=== PATIENT | male | born 1955 | race Caucasian/White ===

== ENCOUNTER 2016-09-16 11:13 | Emergency (ER) | payer BC ==
--- NOTE | 2016-09-16 11:15 | EDM.PDOC ---
ED HPI GENERAL MEDICAL PROBLEM - General Chief Complaint: ENT Problem Stated Complaint: [id number] SINUS TOOTH PAIN Time Seen by Provider: 09/16/16 11:20 Source of Information: Reports: Patient, RN, RN Notes Reviewed History Limitations: Reports: No Limitations - History of Present Illness INITIAL COMMENTS - FREE TEXT/NARRATIVE: Patient arrives by POV with complaint of right ear and right facial pain. He took Tylenol last night and again this morning with no relief. The right ear feels plugged and has decreased hearing. Had a recent dentist appointment and he did not have any dental issues, so he does not believe it is dental related. Right Ear Pain Score (Numeric/FACES): 9 - Related Data Allergies Allergy/AdvReac Type Severity Reaction Status Date / Time Penicillins Allergy Rash Verified 09/16/16 11:20 Home Meds: Home Meds Valsartan/Hydrochlorothiazide [Valsartan-Hctz 160-25 mg Tab] 1 tab PO DAILY 02/22 [History] atorvaSTATin [Lipitor] 20 mg PO DAILY 10/22/15 [History] Past Medical History HEENT History: Reports: Impaired Vision Other HEENT History: wears glasses Cardiovascular History: Reports: High Cholesterol, Hypertension Respiratory History: Reports: None Gastrointestinal History: Reports: None Genitourinary History: Reports: None Musculoskeletal History: Reports: None Neurological History: Reports: None Psychiatric History: Reports: None Endocrine/Metabolic History: Reports: Obesity/BMI 30+ Hematologic History: Reports: None Immunologic History: Reports: None Oncologic (Cancer) History: Reports: None Dermatologic History: Reports: None - Infectious Disease History Infectious Disease History: Reports: Chicken Pox, Measles - Past Surgical History Musculoskeletal Surgical History: Reports: Arthroscopic Knee Social & Family History - Family History Family Medical History: Noncontributory - Tobacco Use Smoking Status *Q: Never Smoker Second Hand Smoke Exposure: No - Recreational Drug Use Recreational Drug Use: No - Living Situation & Occupation Living situation: Reports: , with Spouse ED ROS ENT - Review of Systems Review Of Systems: ROS reveals no pertinent complaints other than HPI. ED EXAM, ENT - Physical Exam Exam: See Below Exam Limited By: No Limitations General Appearance: Alert, WD/WN, No Apparent Distress Eye Exam: Bilateral Eye: Normal Inspection Ears: TM Dullness (right TM retracted with dull walls air-fluid level. ), Other ( Left TM normal. ) Nose: Other (inflamed, boggy nasal mucosa right greater than left, no purulence. ) Mouth/Throat: Normal Inspection, Normal Gums, Normal Lips, Normal Oropharynx, Normal Teeth Head: Atraumatic, Other (Right maxillary face tenderness with swelling and palpable cystic structure. No erythema. No drainage. ) Neck: Normal Inspection, Supple, Non-Tender, Full Range of Motion. No: Lymphadenopathy (L), Lymphadenopathy (R) Respiratory/Chest: No Respiratory Distress Cardiovascular: Regular Rate, Rhythm Neurological: Alert, Oriented, CN II-XII Intact, Normal Cognition, Normal Gait, No Motor/Sensory Deficits Psychiatric: Normal Affect, Normal Mood Skin: Warm, Dry, Intact, Normal Color, No Rash Course - Vital Signs Last Recorded V/S: Last Vital Signs Temp 35.7 C 09/16/16 11:18 Pulse 88 09/16/16 11:18 Resp 20 09/16/16 11:18 BP 176/92 H 09/16/16 11:18 Pulse Ox 100 09/16/16 11:18 Departure - Departure Time of Disposition: 11:29 Disposition: Home, Self-Care 01 Condition: good Clinical Impression: Sebaceous cyst Allergic rhinosinusitis Qualifiers: Chronicity: acute Allergic rhinitis trigger: unspecified Allergic rhinitis seasonality: unspecified seasonality Qualified Code(s): J30.9 - Allergic rhinitis, unspecified Eustachian tube dysfunction Qualifiers: Laterality: right Qualified Code(s): H69.81 - Other specified disorders of Eustachian tube, right ear - Discharge Information Instructions: Sebaceous Cyst Removal, Care After, Barotitis Media Forms: ED Department Discharge Additional Instructions: RX: Clindamycin 300 mg. Use over the counter decongestant. Gently blow your nose frequently until your right ear pops. Moist hot pack to right face. Follow up in clinic this week for recheck.
[2016-09-16 11:19] VITALS: BP 176/92
== END 2016-09-16 11:40 | disposition home or self-care (01) ==
LOC: DL.ED 11:13
DX: H69.81 Other specified disorders of Eustachian tube, right ear (principal); J30.9 Allergic rhinitis, unspecified; L72.3 Sebaceous cyst; Z88.0 Allergy status to penicillin; Z79.899 Other long term (current) drug therapy; H54.7 Unspecified visual loss; E78.00 Pure hypercholesterolemia, unspecified; I10 Essential (primary) hypertension; E66.9 Obesity, unspecified; Z98.890 Other specified postprocedural states; Z68.29 Body mass index [BMI] 29.0-29.9, adult
CPT/HCPCS: 99283

== ENCOUNTER 2016-09-17 08:44 | Emergency (ER) | payer BC ==
--- NOTE | 2016-09-17 08:49 | EDM.PDOC ---
ED HPI GENERAL MEDICAL PROBLEM - General Chief Complaint: ENT Problem Stated Complaint: [id number] SINUS EYE SWELLING CANT HEAR Time Seen by Provider: 09/17/16 08:48 Source of Information: Reports: Patient, Old Records, RN, RN Notes Reviewed History Limitations: Reports: No Limitations - History of Present Illness INITIAL COMMENTS - FREE TEXT/NARRATIVE: Seen here yesterday with Rt ear plugged/muffled, and facial swelling with a rubbery firm lump overlying the Rt maxillary face. Quality: Reports: Ache Severity: Severe Improves with: Reports: None Worsens with: Reports: None Associated Symptoms: Reports: No Other Symptoms Right Face Pain Score (Numeric/FACES): 9 - Related Data Allergies Allergy/AdvReac Type Severity Reaction Status Date / Time Penicillins Allergy Rash Verified 09/17/16 08:50 Home Meds: Home Meds Valsartan/Hydrochlorothiazide [Valsartan-Hctz 160-25 mg Tab] 1 tab PO DAILY 02/22 [History] atorvaSTATin [Lipitor] 20 mg PO DAILY 10/22/15 [History] Past Medical History HEENT History: Reports: Impaired Vision Other HEENT History: wears glasses Cardiovascular History: Reports: High Cholesterol, Hypertension Respiratory History: Reports: None Gastrointestinal History: Reports: None Genitourinary History: Reports: None Musculoskeletal History: Reports: None Neurological History: Reports: None Psychiatric History: Reports: None Endocrine/Metabolic History: Reports: Obesity/BMI 30+ Hematologic History: Reports: None Immunologic History: Reports: None Oncologic (Cancer) History: Reports: None Dermatologic History: Reports: None - Infectious Disease History Infectious Disease History: Reports: Chicken Pox, Measles - Past Surgical History Musculoskeletal Surgical History: Reports: Arthroscopic Knee Social & Family History - Family History Family Medical History: Noncontributory - Tobacco Use Smoking Status *Q: Never Smoker Second Hand Smoke Exposure: No - Recreational Drug Use Recreational Drug Use: No - Living Situation & Occupation Living situation: Reports: , with Spouse ED ROS ENT - Review of Systems Review Of Systems: ROS reveals no pertinent complaints other than HPI. ED EXAM, ENT - Physical Exam Exam: See Below Exam Limited By: No Limitations General Appearance: Alert, WD/WN, No Apparent Distress Eye Exam: Bilateral Eye: Normal Inspection Ears: Normal External Exam, Normal Canal, Hearing Grossly Normal, Normal TMs Nose: Other (Significant increase in right maxillary facial swelling compared to yesterday's exam. Increased warmth, tenderness and erythema. Bulging tender swelling at right pre-molar gingiva with small amount of purulent drainage. ) Mouth/Throat: Normal Inspection, Normal Gums, Normal Lips, Normal Oropharynx, Normal Teeth Head: Atraumatic, Normocephalic Neck: Normal Inspection, Supple, Non-Tender, Full Range of Motion Cardiovascular: Normal Peripheral Pulses, Regular Rate, Rhythm, No Edema, No Gallop, No JVD, No Murmur, No Rub GI/Abdominal: Normal Bowel Sounds, Soft, Non-Tender, No Organomegaly, No Distention, No Abnormal Bruit, No Mass Neurological: Alert, Oriented, CN II-XII Intact, Normal Cognition, Normal Gait, Normal Reflexes, No Motor/Sensory Deficits Psychiatric: Normal Affect, Normal Mood Lymphatic: No Adenopathy ED I&D PROCEDURES - I&D Site: Rt maxillary gingiva Skin prep: Saline Local anesthesia - Lidocaine (Xylocaine): 1% Plain Local Anesthetic Volume: 4cc Area Incised With: 11 Blade Drainage: Purulent, Bloody, Small Amount Probed to Break Up Loculations: Yes Packed With: None Sterile Dressing: None Complications: No Course - Vital Signs Last Recorded V/S: Last Vital Signs Temp 36.0 C 09/17/16 08:51 Pulse 88 09/17/16 08:51 Resp 18 09/17/16 08:51 BP 139/94 H 09/17/16 08:51 Pulse Ox 98 09/17/16 08:51 - Orders/Labs/Meds Labs: Laboratory Tests 09/17/16 09/17/16 09/17/16 Range/Units 08:58 08:58 08:58 WBC 17.7 H (5.0-10.0) 10^3/uL RBC 5.22 (4.6-6.2) 10^6/uL Hgb 17.0 (14.0-18.0) g/dL Hct 48.5 (40.0-54.0) % MCV 92.9 (80-100) fL MCH 32.6 (27.0-34.0) pg MCHC 35.1 H (33.0-35.0) g/dL Plt Count 266 (150-450) 10^3/uL Neut % (Auto) 78.1 H (42.2-75.2) % Lymph % (Auto) 9.7 L (20.5-50.1) % [place] % (Auto) 11.9 H (2-8) % Eos % (Auto) 0.1 L (1.0-3.0) % Baso % (Auto) 0.2 (0.0-1.0) % Sodium 139 (135-145) mmol/L Potassium 4.0 (3.6-5.0) mmol/L Chloride 103 (101-111) mmol/L Carbon Dioxide 23.0 (21.0-31.0) mmol/L Anion Gap 17.0 BUN 9 (7-18) mg/dL Creatinine 1.0 (0.6-1.3) mg/dL Est Cr Clr Drug Dosing TNP Estimated GFR (MDRD) > 60 Glucose 151 H (74-105) mg/dL Calcium 9.7 (8.4-10.2) mg/dl C-Reactive Protein 7.9 H (0.0-1.3) mg/dL Meds: Medications Discontinued Medications Generic Name Dose Route Start Last Admin Trade Name Freq PRN Reason Stop Dose Admin Dexamethasone 12 mg 09/17/16 09:48 09/17/16 10:08 Dexamethasone IVPUSH 09/17/16 09:49 12 mg ONETIME ONE Administration Iopamidol 100 ml 09/17/16 09:02 09/17/16 09:35 Isovue-300 (61%) IVPUSH 09/17/16 09:03 100 ml ONETIME ONE Administration Lidocaine HCl 30 ml 09/17/16 09:39 09/17/16 09:45 Xylocaine-Mpf 1% INJECT 09/17/16 09:40 30 ml ONETIME ONE Administration Lidocaine HCl 15 ml 09/17/16 09:39 09/17/16 09:45 Xylocaine 2% Viscous PO 09/17/16 09:40 15 ml ONETIME ONE Administration Vancomycin HCl 1,250 mg 09/17/16 09:50 09/17/16 10:09 Vancomycin IV 09/17/16 09:51 1,250 mg ONETIME ONE Administration - Radiology Interpretation Free Text/Narrative:: CT Maxillofacial/sinuses: Per rad report multiple periapical lucencies in the maxilla and mandible may represent periapical abscess. Significant periapical lucency in the right maxilla 9.3x6.9mm. This may represent significant periapical abscess or osteomyelitis. Soft tissue swelling lateral to the right maxilla. No drainable fluid collection in the soft tissues. Opacities in the maxillary sinuses right worse then left and right ethmoid sinuses may present sinusitis. CT Results Date: 09/17/16 Departure - Departure Time of Disposition: 11:15 Disposition: Home, Self-Care 01 Condition: fair Clinical Impression: Dental abscess, Cellulitis and abscess of face, Right maxillary sinusitis - Discharge Information Instructions: Dental Abscess, [id number], Cellulitis, Adult, [id number], Sinusitis, Adult, [id number] Forms: ED Department Discharge Additional Instructions: RX: Levaquin 500mg. RX: Elmer 5mg/325mg. Continue Clindamycin as prescribed. Frequent saltwater swish & spit until gum incision has healed (especially after eating or drinking). Follow up tomorrow with your dentist. Return to ER if worse at any time.
[2016-09-17] MEDS ORDERED: Iopamidol 612 MG/ML 75 ML Bottle IVPUSH ONE (08:53)
[2016-09-17] MEDS ORDERED: Iopamidol 612 MG/ML 100 ML Bottle IVPUSH ONE (09:02)
[2016-09-17 09:24] LABS: CHLORIDE,CL 103 mmol/L (101-111); SODIUM,NA 139 mmol/L (135-145)
[2016-09-17] MEDS ORDERED: Lidocaine 1% 30 ML SDV INJECT ONE (09:39)
[2016-09-17] MEDS ORDERED: Lidocaine 2% Viscous Solution 15 ML Cup PO ONE (09:39)
[2016-09-17] MEDS ORDERED: Dexamethasone 4 MG/ML SDV IVPUSH ONE (09:48)
[2016-09-17] MEDS ORDERED: Vancomycin 500 MG SDV IV ONE (09:50)
[2016-09-17 11:52] VITALS: BP 158/92
== END 2016-09-17 11:50 | disposition home or self-care (01) ==
LOC: DL.ED 08:44
DX: K04.7 Periapical abscess without sinus (principal); J32.0 Chronic maxillary sinusitis; L02.01 Cutaneous abscess of face; L03.211 Cellulitis of face; I10 Essential (primary) hypertension; Z68.29 Body mass index [BMI] 29.0-29.9, adult; H54.7 Unspecified visual loss; Z79.899 Other long term (current) drug therapy; E78.00 Pure hypercholesterolemia, unspecified; E66.9 Obesity, unspecified; Z88.0 Allergy status to penicillin
CPT/HCPCS: 36415; 70487; 80048; 85025; 86140; 96365; 96375; 99284; A9270; J1100; J3370; Q9967

== ENCOUNTER 2021-05-09 08:14 | Emergency (ER) | payer BC, MEDICARE ==
[2021-05-09] MEDS ORDERED: Lidocaine 2% Viscous Solution 15 ML UD TOP ONE (08:27)
[2021-05-09] MEDS ORDERED: Doxycycline Monohydrate 100 MG Cap PO ONE (08:28)
[2021-05-09 08:31] VITALS: BP 161/109; PULSE 74
[2021-05-09 09:35] LABS: RESPIRATORY SYNCYTIAL VIR NAA NEGATIVE (NEGATIVE)
[2021-05-09 09:38] LABS: CORONAVIRUS COVID-19 NAA POSITIVE (NEGATIVE)
== END 2021-05-09 10:09 | disposition home or self-care (01) ==
LOC: DL.ED 08:14
DX: U07.1 COVID-19 (principal); H66.001 Acute suppurative otitis media without spontaneous rupture of ear drum, right ear; R91.1 Solitary pulmonary nodule; I10 Essential (primary) hypertension; E78.00 Pure hypercholesterolemia, unspecified; E66.9 Obesity, unspecified; Z68.30 Body mass index [BMI] 30.0-30.9, adult; Z88.0 Allergy status to penicillin; Z79.899 Other long term (current) drug therapy
CPT/HCPCS: 0241U; 71045; 99283; A9270-GY